=== PATIENT | female | born 1980 | race Caucasian/White ===

== ENCOUNTER 2023-10-23 13:15 | Emergency (ER) | payer OTHER ==
[2023-10-23 13:39] VITALS: BP 114/73; PULSE 76; RESP 18; TEMP 98.2; BMI 26.6
[2023-10-23 14:53] LABS: BASO % 0.6 % (0-2.0); EOS % 3.8 % (0-4.5); HEMATOCRIT 40.7 % (32.4-45.2); HEMOGLOBIN 13.9 GM/dL (10.7-15.3); LYMPH % 30.6 % (8-40); MCH 31.5 pg (25.7-33.7); MCHC 34.2 g/dl (32.0-36.0); MEAN PLT VOLUME 8.9 fl (7.5-11.1); MONO % 9.9 % (3.8-10.2); NEUT % 55.1 % (42.8-82.8); PLATELET COUNT 251 10^3/uL (134-434); RBC 4.43 M/mm3 (3.60-5.2); RDW 12.9 % (11.6-15.6)
[2023-10-23 15:01] LABS: HCG,QUALITATIVE URINE Negative
[2023-10-23 15:03] LABS: EPI CELLS 19 /uL (0-25.1); HYALINE CASTS 1 /uL (0-3.1); URINE APPEARANCE CLEAR; URINE BACTERIA 1925 /uL (0-1359); URINE BILIRUBIN NEGATIVE (NEGATIVE); URINE COLOR YELLOW; URINE GLUCOSE (UA) NEGATIVE (NEGATIVE); URINE KETONE NEGATIVE (NEGATIVE); URINE LEUK ESTERASE NEGATIVE (NEGATIVE); URINE NITRITE NEGATIVE (NEGATIVE); URINE PROTEIN NEGATIVE (NEGATIVE); URINE RBC 51 /uL (0-23.9); URINE WBC 19 /uL (0-25.8)
[2023-10-23 15:22] LABS: CHLORIDE 108 mmol/L (98-107); POTASSIUM 4.2 mmol/L (3.5-5.1); SODIUM 138 mmol/L (136-145)
[2023-10-23 15:24] LABS: CALCIUM 9.2 mg/dL (8.5-10.1)
[2023-10-23 15:25] LABS: ALBUMIN 3.9 g/dl (3.4-5.0); ANION GAP 5 mmol/L (4-13); BLOOD UREA NITROGEN 12.2 mg/dL (7-18); CO2 25 mmol/L (21-32); GLUCOSE,RANDOM 83 mg/dL (74-106)
[2023-10-23 15:28] LABS: CREATININE 0.7 mg/dL (0.55-1.3); SGOT/AST 16 U/L (15-37); SGPT/ALT 28 U/L (13-61)
[2023-10-23 15:29] LABS: TOT PROT 7.6 g/dl (6.4-8.2)
[2023-10-23 15:30] LABS: BILIRUBIN,TOTAL 0.3 mg/dL (0.2-1)
[2023-10-23 15:31] LABS: ALK PHOS 70 U/L (45-117)
[2023-10-23] MEDS ORDERED: KETOROLAC TROMETHAMINE 30 MG/1 ML VIAL IM ONE (15:37)
[2023-10-23] MEDS ORDERED: KETOROLAC TROMETHAMINE 30 MG/1 ML VIAL ONE (15:41)
[2023-10-23] MEDS ORDERED: LIDOCAINE 5% TOPICAL PATCH TP ONE (17:12)
[2023-10-23] MEDS ORDERED: CYCLOBENZAPRINE HCL 10 MG TABLET (FP) PO ONE (17:13)
[2023-10-23] MEDS ORDERED: CYCLOBENZAPRINE HCL 10 MG TABLET (FP) ONE (17:19)
[2023-10-23] MEDS ORDERED: LIDOCAINE 4% PATCH TP ONE (17:19)
[2023-10-23] MEDS ORDERED: LIDOCAINE PATCH REMOVAL MC ONE (22:00)
== END 2023-10-23 17:37 | disposition home or self-care (01) ==
LOC: JER 13:15
PROC: 3E0233Z Introduction of Anti-inflammatory into Muscle, Percutaneous Approach (ICD-10-PCS; principal; 2023-10-23)
DX: M54.50 Low back pain, unspecified (principal); N91.2 Amenorrhea, unspecified
CPT/HCPCS: 36415; 74177-TC; 80053; 81003; 84702; 84703; 85025; 86850; 86900; 86901; 87086; 99285-25; Q9967

== ENCOUNTER 2024-01-06 04:50 | Emergency (ER) | payer BC, OTHER ==
[2024-01-06 05:18] VITALS: BP 125/85; PULSE 90; RESP 18; TEMP 98.4; BMI 29.2
[2024-01-06] MEDS ORDERED: diphenhydrAMINE HCL 25 MG CAPSULE (FP) PO ONE (05:31)
[2024-01-06] MEDS ORDERED: FAMOTIDINE 20 MG TABLET ONE ×2 (05:31→05:37)
[2024-01-06] MEDS ORDERED: DEXAMETHASONE SOD PHOSPHATE 10 MG/1 ML VIAL ONE (05:31)
[2024-01-06] MEDS: FAMOTIDINE 20 MG TABLET PO ONE (05:43)
[2024-01-06] MEDS: diphenhydrAMINE HCL 25 MG CAPSULE (FP) PO ONE (05:43)
[2024-01-06] MEDS: DEXAMETHASONE SOD PHOSPHATE 10 MG/1 ML VIAL IM ONE (05:43)
== END 2024-01-06 06:19 | disposition home or self-care (01) ==
LOC: JER 04:50
PROC: 3E023GC Introduction of Other Therapeutic Substance into Muscle, Percutaneous Approach (ICD-10-PCS; principal; 2024-01-06)
DX: R21 Rash and other nonspecific skin eruption (principal); L50.9 Urticaria, unspecified; T78.40XA Allergy, unspecified, initial encounter
CPT/HCPCS: 99284-25; J1100